=== PATIENT | female | born 2000 | race Caucasian/White ===

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

== ENCOUNTER 2019-05-19 13:05 | Outpatient (CLI) | payer BC ==
--- NOTE | 2019-05-19 13:35 | RAD ---
TWO VIEWS OF THE CHEST: 05/19/10 COMPARISON: 09/17/12. HISTORY: Productive cough. FINDINGS: Two views of the chest show normal sized cardiomediastinal silhouette. There is no evidence of consol idation, mass, or pleural effusion. The bones are unremarkable. IMPRESSION: No evidence of acute cardiopulmonary disease. POS: [facility]
== END 2019-05-19 13:06 | disposition home or self-care (01) ==
LOC: MADRAD 13:05
PROVIDERS: ATTEND Family Medicine
DX: J18.9 Pneumonia, unspecified organism (principal)
CPT/HCPCS: 71046